=== PATIENT | female | born 1965 | race American Indian/Alaskan Native ===

== ENCOUNTER 2016-06-23 19:56 | Inpatient (IN) | payer BC, OTHER ==
[2016-06-23] MEDS ORDERED: NACL 0.9% 1000 ML 2,000 ML IV ONE (20:15)
[2016-06-23] MEDS ORDERED: NACL 0.9% 1000 ML 2,000 ML ONE (20:17)
[2016-06-23] MEDS ORDERED: NACL 0.9% 1000 ML 1,000 ML IV ONE (21:59)
[2016-06-23] MEDS ORDERED: DIFLUCAN PO ONE (22:07)
[2016-06-23 22:15] LABS: Basophils % (Auto) 0.9 % (0.0-1.8); Eosinophils % (Auto) 0.4 % (0.0-4.3); Hemoglobin 14.8 gm/dl (10.1-14.3); Mean Corpuscular HGB Conc 32 % (30-34); Mean Corpuscular Hemoglobin 30 pg (28-32); Mean Corpuscular Volume 94 fl (79-97); Platelet Count 316 K/mm3 (140-440); Red Blood Count 4.89 M/mm3 (3.65-5.03); Red Cell Distribution Width 13.8 % (13.2-15.2)
[2016-06-23 22:49] LABS: Bacteria,Urine 1+ /HPF (Negative); Bilirubin,Urine NEG (Negative); Blood,Urine LG (Negative); Ketones,Urine 20 mg/dL (Negative); Leukocyte Esterase,Urine LG (Negative); Mucus,Urine FEW /HPF; Nitrite,Urine NEG (Negative); Protein,Urine <15 mg/dL mg/dL (Negative); Urobilinogen,Urine < 2.0 mg/dL (<2.0)
[2016-06-23 23:03] LABS: BUN/Creatinine Ratio 15.71; Calcium 10.4 mg/dL (8.4-10.2); Chloride 80.1 mmol/L (98-107)
[2016-06-23 23:11] LABS: B-Hydroxybutyrate 70.3 mg/dL (0.2-2.8)
[2016-06-23 23:13] LABS: Potassium 6.1 mmol/L (3.6-5.0)
[2016-06-23] MEDS ORDERED: D50W (25GM) IV PRN (23:25)
[2016-06-23] MEDS ORDERED: PROVENTIL IH ONE (23:27)
--- NOTE | 2016-06-23 23:30 | Emergency Department Report ---
- General Chief complaint: Hyperglycemia Stated complaint: BLURRED VISION Time Seen by Provider: 06/23/16 21:41 Source: patient, old records reviewed (admitted here 2014 for new onset dm, also had elevated triglycerides during that admission) Mode of arrival: Ambulatory Limitations: No Limitations - History of Present Illness Initial comments: 50 year old female with a past medical history of asthma. Diabetes and hypertension presents to Hospital complaints of polyuria, blurred vision, and polydipsia for at least 2 weeks. Positive nausea without vomiting. Patient been noncompliant with her insulin for 5 months due to lack of insurance and ability to follow with the primary care doctor. She denies any pain. She does complain of vaginal itching when questioned. No reports of chest pain, shortness of breath, dysuria, or fever. Previous medical record reviewed. Patient was admitted by me at 2014 for new onset diabetes. Triglycerides noted to be elevated at that time. Severity scale (0 -10): 0 - Related Data Previous Rx's Medication Instructions Recorded Last Taken Type Insulin NPH/Regular [NovoLIN 70/30] 30 unit SUB-Q BIDDIAB #1 vial 05/18/14 Unknown Rx Allergies Allergy/AdvReac Type Severity Reaction Status Date / Time No Known Allergies Allergy Unverified 05/15/14 18:46 ED Review of Systems ROS: Stated complaint: BLURRED VISION Other details as noted in HPI Comment: All other systems reviewed and negative Other: Constitutional: No fevers chills Eyes: No eye pain visual changes ENT: No ear pain or throat pain Neck: Denies pain Respiratory: Denies cough wheezing shortness of breath Cardiovascular: Denies chest pain, palpitations, syncope Endocrine: As per HPI GI: Denies abdominal pain, nausea, vomiting, diarrhea : Denies dysuria, urinary frequency, or urgency Musculoskeletal: Denies back pain, joint swelling . Denies neuropathy symptoms Skin: Denies rash, lesions, erythema Neurologic: Denies headache, numbness, weakness Psychiatric: Denies suicidal ideation, hallucinations ED Past Medical Hx - Past Medical History Previous Medical History?: Yes Hx Hypertension: No Hx Diabetes: Yes - Surgical History Past Surgical History?: No - Social History Smoking Status: Never Smoker - Medications Home Medications: Home Medications Medication Instructions Recorded Confirmed Last Taken Type Insulin NPH/Regular [NovoLIN 70/30] 30 unit SUB-Q BIDDIAB #1 vial 01/15/15 Unknown Rx ED Physical Exam - General Limitations: No Limitations - Other Other exam information: General: No limitations, patient is alert in no acute distress Head exam: Atraumatic, normocephalic Eyes exam: Normal appearance, pupils equal reactive to light, extraocular movements intact ENT: Dry mucous mucosa, scattered white plaques on tongue possible thrush Neck exam: Normal inspection, full range of motion, no meningismus nontender Respiratory exam: Clear to auscultation, no tachypnea Cardiovascular: Mild tachycardia, regular rhythm Abdomen: Soft, nondistended, and nontender, with normal bowel sounds, no rebound, or guarding Extremity: Full range of motion normal inspection no deformity Back: Normal Inspection, full range of motion, no tenderness Neurologic: Alert, oriented x3, cranial nerves intact, no motor or sensory deficit Psychiatric: normal affect, normal mood Skin: Warm, dry, intact ED Course Vital Signs 06/23/16 06/23/16 06/23/16 20:07 22:14 23:48 Temperature 98.6 F Pulse Rate 110 H 90 Pulse Rate [ 106 H Throughout] Respiratory 18 18 Rate Respiratory 20 Rate [ Throughout] Blood Pressure 128/85 Blood Pressure 124/80 [Left] O2 Sat by Pulse 100 0 L Oximetry - Reevaluation(s) Reevaluation #1: 06/23/16 23:47 pt stable. ED Medical Decision Making - Lab Data Result diagrams: 06/23/16 22:00 06/23/16 22:00 Lab Results 06/23/16 06/23/16 06/23/16 Range/Units 20:07 22:00 22:00 WBC 8.0 (4.5-11.0) K/mm3 RBC 4.89 (3.65-5.03) M/mm3 Hgb 14.8 H (10.1-14.3) gm/dl Hct 46.0 H (30.3-42.9) % MCV 94 (79-97) fl MCH 30 (28-32) pg MCHC 32 (30-34) % RDW 13.8 (13.2-15.2) % Plt Count 316 (140-440) K/mm3 Lymph % (Auto) 19.7 (13.4-35.0) % Love % (Auto) 9.7 H (0.0-7.3) % Eos % (Auto) 0.4 (0.0-4.3) % Baso % (Auto) 0.9 (0.0-1.8) % Lymph # 1.6 (1.2-5.4) K/mm3 Love # 0.8 (0.0-0.8) K/mm3 Eos # 0.0 (0.0-0.4) K/mm3 Baso # 0.1 (0.0-0.1) K/mm3 Seg Neutrophils % 69.3 (40.0-70.0) % Seg Neutrophils # 5.5 (1.8-7.7) K/mm3 VBG pH (7.320-7.420) Sodium 128 L (137-145) mmol/L Potassium 6.1 H* (3.6-5.0) mmol/L Chloride 80.1 L (98-107) mmol/L Carbon Dioxide 18 L (22-30) mmol/L Anion Gap 36 mmol/L BUN 22 H (7-17) mg/dL Creatinine 1.4 H (0.7-1.2) mg/dL Estimated GFR 48 ml/min BUN/Creatinine Ratio 15.71 % Glucose 805 H* (65-100) mg/dL POC Glucose > 500 H (70-105) Calcium 10.4 H (8.4-10.2) mg/dL Urine Color (Yellow) Urine Turbidity (Clear) Urine pH (5.0-7.0) Ur Specific [place] (1.003-1.030) Urine Protein (Negative) mg/dL Urine Glucose (UA) (Negative) mg/dL Urine Ketones (Negative) mg/dL Urine Blood (Negative) Urine Nitrite (Negative) Urine Bilirubin (Negative) Urine Urobilinogen (<2.0) mg/dL Ur Leukocyte Esterase (Negative) Urine WBC (Auto) (0.0-6.0) /HPF Urine RBC (Auto) (0.0-6.0) /HPF U Epithel Cells (Auto) (0-13.0) /HPF Urine Bacteria (Auto) (Negative) /HPF Urine Mucus /HPF Ketones 70.3 H (0.2-2.8) mg/dL 06/23/16 06/23/16 06/23/16 Range/Units 22:00 22:00 22:22 WBC (4.5-11.0) K/mm3 RBC (3.65-5.03) M/mm3 Hgb (10.1-14.3) gm/dl Hct (30.3-42.9) % MCV (79-97) fl MCH (28-32) pg MCHC (30-34) % RDW (13.2-15.2) % Plt Count (140-440) K/mm3 Lymph % (Auto) (13.4-35.0) % Love % (Auto) (0.0-7.3) % Eos % (Auto) (0.0-4.3) % Baso % (Auto) (0.0-1.8) % Lymph # (1.2-5.4) K/mm3 Love # (0.0-0.8) K/mm3 Eos # (0.0-0.4) K/mm3 Baso # (0.0-0.1) K/mm3 Seg Neutrophils % (40.0-70.0) % Seg Neutrophils # (1.8-7.7) K/mm3 VBG pH 7.289 L (7.320-7.420) Sodium (137-145) mmol/L Potassium (3.6-5.0) mmol/L Chloride (98-107) mmol/L Carbon Dioxide (22-30) mmol/L Anion Gap mmol/L BUN (7-17) mg/dL Creatinine (0.7-1.2) mg/dL Estimated GFR ml/min BUN/Creatinine Ratio % Glucose (65-100) mg/dL POC Glucose > 500 H (70-105) Calcium (8.4-10.2) mg/dL Urine Color Straw (Yellow) Urine Turbidity Clear (Clear) Urine pH 5.0 (5.0-7.0) Ur Specific [place] 1.028 (1.003-1.030) Urine Protein <15 mg/dl (Negative) mg/dL Urine Glucose (UA) >=500 (Negative) mg/dL Urine Ketones 20 (Negative) mg/dL Urine Blood Lg (Negative) Urine Nitrite Neg (Negative) Urine Bilirubin Neg (Negative) Urine Urobilinogen < 2.0 (<2.0) mg/dL Ur Leukocyte Esterase Lg (Negative) Urine WBC (Auto) 17.0 H (0.0-6.0) /HPF Urine RBC (Auto) 9.0 (0.0-6.0) /HPF U Epithel Cells (Auto) 1.0 (0-13.0) /HPF Urine Bacteria (Auto) 1+ (Negative) /HPF Urine Mucus Few /HPF Ketones (0.2-2.8) mg/dL - EKG Data -: EKG Interpreted by Me (nsr rate 102, no peak t waves) - EKG Data When compared to previous EKG there are: previous EKG unavailable - Medical Decision Making Patient received IV insulin, normal saline, and by mouth Diflucan for thrush and complains of vaginal itching.. Patient need admitted to the hospital for DKA and hyperglycemia. Insulin drip initiated in the ED. Albuterol given for Hyperkalemia in addition to insulin drip. - Differential Diagnosis DKA, hyperglycemia, medication noncompliance, electrolyte abnormality, Critical Care Time: No Critical care attestation.: If time is entered above; I have spent that time in minutes in the direct care of this critically ill patient, excluding procedure time. ED Disposition Clinical Impression: DKA (diabetic ketoacidoses), Thrush, Hyperkalemia, Acute renal insufficiency, Noncompliance with medication regimen, Obesity, Newly diagnosed diabetes Disposition: OP ADMITTED IP TO THIS HOSP Is pt being admited?: Yes Condition: Stable Time of Disposition: 23:34 (Dr dias/[facility])
[2016-06-24] MEDS: NovoLIN R 100 UNITS in NACL 0.9% 99 ML IV SCH ×2 (00:23→15:11)
[2016-06-24] MEDS ORDERED: NACL 0.9% 1000 ML IV ONE (00:52)
[2016-06-24] MEDS ORDERED: NACL 0.9% 1000 ML 1,000 ML ONE (00:53)
[2016-06-24 01:01] LABS: Magnesium 2.3 mg/dL (1.7-2.3); Phosphorous 6.3 mg/dL (2.5-4.5)
[2016-06-24 01:23] LABS: BUN/Creatinine Ratio 16.66; Calcium 9.3 mg/dL (8.4-10.2); Chloride 92.7 mmol/L (98-107); Potassium 3.9 mmol/L (3.6-5.0)
[2016-06-24 05:08] LABS: BUN/Creatinine Ratio 14.61; Calcium 9.1 mg/dL (8.4-10.2); Chloride 97.9 mmol/L (98-107); Potassium 3.4 mmol/L (3.6-5.0)
[2016-06-24] MEDS ORDERED: D5W/0.45% NACL/KCL 20 MEQ 20 MEQ/1,000 ML BAG IV SCH (07:00)
[2016-06-24 08:18] LABS: Anion Gap 23 mmol/L; Blood Urea Nitrogen 19 mg/dL (7-17); Calcium 8.9 mg/dL (8.4-10.2); Carbon Dioxide 21 mmol/L (22-30); Chloride 102.9 mmol/L (98-107); Glucose 228 mg/dL (65-100); Potassium 3.3 mmol/L (3.6-5.0); Sodium 144 mmol/L (137-145)
--- NOTE | 2016-06-24 10:36 | Consultation ---
History of Present Illness Consult date: 06/24/16 Requesting physician: ADONAY VALLES Reason for consult: other (DKA) History of present illness: PULMONARY/CCM CONSULT NOTE (Full dictation # [id number]) Please see dictated notes for full details Medications and Allergies Allergies Allergy/AdvReac Type Severity Reaction Status Date / Time No Known Allergies Allergy Unverified 05/15/14 18:46 Home Medications Medication Instructions Recorded Confirmed Last Taken Type Insulin NPH/Regular [NovoLIN 70/30] 30 unit SUB-Q BIDDIAB #1 vial 05/18/14 Unknown Rx Active Meds: Active Medications Dextrose (D50w (25gm)) 0 ml IV PRN PRN PRN Reason: Hypoglycemia Insulin Human Regular 100 (units/ Sodium Chloride) 100 mls @ 1 mls/hr IV TITR [place]; 1 UNITS/HR PRN Reason: Protocol Last Titration: 06/24/16 06:45 Dose: 4 units/hr, 4 mls/hr Potassium Chloride/Dextrose/Sod Cl (D5w/0.45% Nacl/Kcl 20 Meq) 20 meq in 1,000 mls @ 125 mls/hr IV DIRECT [place] Influenza Virus Vaccine Quadrival (Fluarix Quad [id number](36 Mos+)) 60 mcg IM .ONCE ONE Stop: 06/24/16 12:01 Insulin Human Isoph/Insulin Regular (Novolin 70/30) 30 unit SUB-Q BIDDIAB [place] Last Admin: 06/24/16 08:40 Dose: 30 unit Physical Examination Vital signs: Vital Signs Temp Pulse Resp BP Pulse Ox 98.6 F 110 H 18 128/85 100 06/23/16 20:07 06/23/16 20:07 06/23/16 20:07 06/23/16 20:07 06/23/16 20:07 Results - Laboratory Findings CBC and BMP: 06/23/16 22:00 06/24/16 07:23 Abnormal lab findings: Abnormal Labs 06/24/16 06/24/16 06/24/16 00:04 00:43 01:27 Potassium Chloride 92.7 L Carbon Dioxide 16 L BUN 20 H Creatinine Glucose 562 H* POC Glucose 491 H 443 H 06/24/16 06/24/16 06/24/16 02:26 03:23 04:06 Potassium 3.4 L Chloride 97.9 L Carbon Dioxide 18 L BUN 19 H Creatinine 1.3 H Glucose 326 H POC Glucose 394 H 359 H 06/24/16 06/24/16 06/24/16 04:31 05:33 06:44 Potassium Chloride Carbon Dioxide BUN Creatinine Glucose POC Glucose 284 H 263 H 243 H 06/24/16 07:23 Potassium 3.3 L Chloride Carbon Dioxide 21 L BUN 19 H Creatinine Glucose 228 H POC Glucose
--- NOTE | 2016-06-24 11:17 | Admit Criteria Form ---
Admission Criteria Documentation: DIABETES Clinical Indications for Admission to Inpatient Care (Place 'X' for any and all applicable criteria): Admission is indicated by presence of ALL (if I & II) or ANY ONE (if III or IV) of the following (1)(2)(3)(4): [X]I. Diabetes is uncontrolled as indicated by ANY ONE of the following: [X]a) Diabetic ketoacidosis as indicated by ALL of the following (8): [X]i) Hyperglycemia (eg, plasma glucose greater than 200 mg/ dL (11.1 mmol/L)) [X]ii) Acidosis (eg, arterial pH less than 7.30, serum bicarbonate level less than 15 mEq/L (mmol/L)) [X]iii) Moderate ketonuria or ketonemia [ ]b) Hyperglycemic hyperosmolar state as indicated by ALL of the following(9)(10): [ ]i) Neurologic dysfunction (eg, stupor, coma, hemiparesis , seizure)(13) [ ]ii) Plasma glucose greater than 600 mg/dL (33.3 mmol/L) [ ]iii) Serum osmolality greater than 320 mOsm/kg (mmol/kg) [X]c) Severe signs or symptoms secondary to hyperglycemia indicated by ANY ONE of the following: [ ]i) Altered mental status(10) [ ]ii) Significant hypovolemia or dehydration [ ]iii) Intractable nausea or vomiting [ ]iv) Unexplained fever or severe infection [X]v) Severe electrolyte abnormality (eg, hypokalemia, hyperkalemia, hypernatremia) [ ]II. Management at other levels of care (Also use Diabetes: Observation Care as appropriate) is not feasible because of ANY ONE of the following: [ ]a) Condition was not adequately corrected with treatment at other levels of care. [ ]b) Treatment at other levels of care is not appropriate because of condition severity (eg, hyperosmolar coma). [X]III. Contraindications and/or Inappropriate clinical situations for Observational Care in patients with Diabetes, when ANY ONE of the following is required: [X]a) Patient require specific diagnostic workup or therapeutic intervention 22 [ ]b) Patient with abnormal vital signs or altered mental status 23 [ ]IV. General contraindications and/or Inappropriate clinical situations for Observational Care in patients with Diabetes, when ANY ONE of the following is required: [ ]a) Prediction of prolongation of LOS based on ANY ONE of the following may be considered as a contraindication for observational care 2, 3, 4, 5, 6, 7, 8, 9, 10, 11 [ ]i) Age > 65 yrs. [ ]ii) Patient arriving by ambulance [ ]iii) Patient with high acuity [ ]iv) Patient requiring vital sign monitoring [ ]v) Patient on IV medication [ ]b) Systolic blood pressures 180mmHg 3,12 [ ]c) Patient with altered mental status including delirium and other alteration of consciousness, (3) [ ]d) Patient whose discharge disposition will be to a jail home or rehabilitation home should not be managed in Emergency Department Observation Unit. CMS rule requires 3 days hospital stay before such placement.3,13 [ ]e) Patient with failure to thrive due to broad array of etiologies 3,16,17 [ ]f) Inability to ambulate 3,14 Extended stay beyond goal length of stay may be needed for(3)(20): [ ]a) Treatment of precipitating causes [ ]b) Development of hypoglycemia [ ]c) Complications of treatment [ ]d) Complications of decompensated diabetes (eg, acute gastric dilatation, persistent metabolic or neurologic derangement) [ ]e) Active Comorbidities [ ]f) Older patients( 65 years or older) The original [email or web address] content created by [employer] has been revised. The portions of the content which have been revised are identified through the use of italic text or in bold,and [facility] has neither reviewed nor approved the modified material. All other unmodified content is copyright [facility]. Please see references footnoted in the original [facility] edition 2016 Admission Criteria Met: Yes
[2016-06-24] MEDS ORDERED: FLUARIX QUAD 2016-2017(36 MOS+) IM ONE (12:00)
[2016-06-24] MEDS ORDERED: LEVAQUIN PO SCH (13:00)
[2016-06-24 13:47] LABS: Calcium 8.9 mg/dL (8.4-10.2); Chloride 103.6 mmol/L (98-107); Potassium 3.4 mmol/L (3.6-5.0)
[2016-06-24 15:28] LABS: Anion Gap 21 mmol/L; Blood Urea Nitrogen 19 mg/dL (7-17); Calcium 8.7 mg/dL (8.4-10.2); Carbon Dioxide 20 mmol/L (22-30); Chloride 103.4 mmol/L (98-107); Glucose 112 mg/dL (65-100); Potassium 3.6 mmol/L (3.6-5.0); Sodium 141 mmol/L (137-145)
[2016-06-24] MEDS ORDERED: D50W (25GM) IV PRN ×2 (15:35→15:39)
[2016-06-24] MEDS: LEVAQUIN PO SCH (16:11)
--- NOTE | 2016-06-24 17:39 | Progress Note ---
Assessment and Plan 50 year old female with a past medical history of asthma. Diabetes and hypertension presents to Hospital complaints of polyuria, blurred vision, and polydipsia for at least 2 weeks. Positive nausea without vomiting. Patient been noncompliant with her insulin for 5 months due to lack of insurance and ability to follow with the primary care doctor. Complains of vagina itching. 1. Diabetic ketoacidosis: On insulin drip, IV Protonix. Zofran. #. 2. Diabetes mellitus type 2 diagnosed 2002 uncontrolled. Noncompliant. 3. Hypertension optimize with losartan and nifedipine 4. Possibly his vaginitis. Diflucan. 5. Asthma:Bronchodilators. DVT prophylaxis Lovenox and GI with Protonix Critical care time was 32 minutes. Subjective Date of service: 06/24/16 Principal diagnosis: DKA Interval history: 50-year-old lady who came in with diabetic ketoacidosis secondary to noncompliance with her insulin regimen because of lack of insurance. Objective - Constitutional Vitals: Vital Signs - 12hr 06/24/16 06/24/16 06/24/16 05:41 05:51 06:01 Temperature Pulse Rate 102 H 101 H 99 H Respiratory 15 15 16 Rate Blood Pressure 99/57 99/57 106/67 O2 Sat by Pulse 97 97 97 Oximetry 06/24/16 06/24/16 06/24/16 06:11 06:21 06:31 Temperature Pulse Rate 103 H 97 H 99 H Respiratory 14 18 14 Rate Blood Pressure 106/67 106/67 106/67 O2 Sat by Pulse 97 97 97 Oximetry 06/24/16 06/24/16 06/24/16 06:41 06:51 07:00 Temperature Pulse Rate 102 H 102 H 100 H Respiratory 13 12 14 Rate Blood Pressure 106/67 106/67 116/72 O2 Sat by Pulse 97 96 96 Oximetry 06/24/16 06/24/16 06/24/16 07:11 07:21 07:31 Temperature Pulse Rate 99 H 104 H 104 H Respiratory 13 12 16 Rate Blood Pressure 106/67 106/67 106/67 O2 Sat by Pulse 98 97 98 Oximetry 06/24/16 06/24/16 06/24/16 07:41 08:00 08:31 Temperature 98.3 F Pulse Rate 100 H 100 H Respiratory 14 10 L Rate Blood Pressure 116/72 112/63 O2 Sat by Pulse 96 96 Oximetry 06/24/16 06/24/16 06/24/16 08:41 08:51 09:00 Temperature Pulse Rate 102 H 99 H 99 H Respiratory 14 17 15 Rate Blood Pressure 112/63 112/63 117/62 O2 Sat by Pulse 97 97 97 Oximetry 06/24/16 06/24/16 06/24/16 09:11 09:21 09:31 Temperature Pulse Rate 98 H 97 H 102 H Respiratory 12 18 20 Rate Blood Pressure 117/62 117/62 117/62 O2 Sat by Pulse 97 96 95 Oximetry 06/24/16 06/24/16 06/24/16 09:41 09:51 10:00 Temperature Pulse Rate 98 H 99 H 95 H Respiratory 14 20 11 L Rate Blood Pressure 117/62 117/62 104/65 O2 Sat by Pulse 97 95 97 Oximetry 06/24/16 06/24/16 06/24/16 10:11 10:21 10:31 Temperature Pulse Rate 97 H 100 H 101 H Respiratory 17 19 16 Rate Blood Pressure 104/65 104/65 104/65 O2 Sat by Pulse 96 96 97 Oximetry 06/24/16 06/24/16 06/24/16 10:41 10:51 11:00 Temperature Pulse Rate 100 H 101 H 100 H Respiratory 13 19 15 Rate Blood Pressure 104/65 104/65 106/62 O2 Sat by Pulse 97 97 97 Oximetry 06/24/16 06/24/16 06/24/16 11:11 11:21 11:31 Temperature Pulse Rate 133 H 103 H 108 H Respiratory 23 18 12 Rate Blood Pressure 106/62 106/62 106/62 O2 Sat by Pulse 99 98 97 Oximetry 06/24/16 06/24/16 06/24/16 11:41 11:51 12:00 Temperature 97.9 F Pulse Rate 102 H 99 H 99 H Respiratory 15 11 L 16 Rate Blood Pressure 106/62 106/62 115/72 O2 Sat by Pulse 97 97 97 Oximetry 06/24/16 06/24/16 06/24/16 12:11 12:21 12:31 Temperature Pulse Rate 99 H 98 H 92 H Respiratory 20 11 L 15 Rate Blood Pressure 115/72 115/72 115/72 O2 Sat by Pulse 97 98 95 Oximetry 06/24/16 06/24/16 06/24/16 12:41 12:51 13:01 Temperature Pulse Rate 92 H 93 H 90 Respiratory 14 17 10 L Rate Blood Pressure 115/72 115/72 115/72 O2 Sat by Pulse 97 97 97 Oximetry 06/24/16 06/24/16 06/24/16 13:10 13:21 13:31 Temperature Pulse Rate 95 H 95 H 90 Respiratory 13 10 L 17 Rate Blood Pressure 116/72 115/72 115/72 O2 Sat by Pulse 97 98 95 Oximetry 06/24/16 06/24/16 06/24/16 13:41 13:51 14:00 Temperature Pulse Rate 94 H 93 H 96 H Respiratory 18 18 12 Rate Blood Pressure 115/72 115/72 110/66 O2 Sat by Pulse 95 96 98 Oximetry 06/24/16 06/24/16 06/24/16 14:11 14:21 14:31 Temperature Pulse Rate 94 H 95 H 95 H Respiratory 14 14 18 Rate Blood Pressure 110/66 110/66 110/66 O2 Sat by Pulse 97 98 97 Oximetry 06/24/16 06/24/16 06/24/16 14:41 14:51 15:00 Temperature Pulse Rate 95 H 93 H 90 Respiratory 14 15 14 Rate Blood Pressure 110/66 110/66 121/85 O2 Sat by Pulse 97 98 98 Oximetry 06/24/16 06/24/16 06/24/16 15:11 15:21 15:31 Temperature Pulse Rate 97 H 92 H 92 H Respiratory 20 12 13 Rate Blood Pressure 121/85 121/85 121/85 O2 Sat by Pulse 97 98 99 Oximetry 06/24/16 06/24/16 06/24/16 15:41 15:51 16:00 Temperature 98.2 F Pulse Rate 93 H 94 H 92 H Respiratory 17 21 15 Rate Blood Pressure 121/85 121/85 122/72 O2 Sat by Pulse 97 96 97 Oximetry 06/24/16 06/24/16 06/24/16 16:11 16:21 16:31 Temperature Pulse Rate 90 93 H 92 H Respiratory 17 17 19 Rate Blood Pressure 122/72 122/72 122/72 O2 Sat by Pulse 99 97 98 Oximetry 06/24/16 16:41 Temperature Pulse Rate 99 H Respiratory 18 Rate Blood Pressure 122/72 O2 Sat by Pulse 97 Oximetry General appearance: Present: no acute distress, well-nourished - EENT Eyes: PERRL, EOM intact ENT: hearing intact, clear oral mucosa Ears: bilateral: normal - Neck Neck: supple, normal ROM - Respiratory Respiratory effort: normal Respiratory: bilateral: CTA - Breasts Breasts: normal - Cardiovascular Rhythm: regular Heart Sounds: Present: S1 & S2. Absent: gallop, rub Extremities: pulses intact, No edema, normal color, Full ROM - Gastrointestinal General gastrointestinal: Present: soft, non-tender, non-distended, normal bowel sounds - Genitourinary Female genitourinary: normal - Integumentary Integumentary: clear, warm, dry - Musculoskeletal Musculoskeletal: 1, strength equal bilaterally - Neurologic Neurologic: moves all extremities - Psychiatric Psychiatric: memory intact, appropriate mood/affect, intact judgment & insight - Labs CBC & Chem 7: 06/23/16 22:00 06/24/16 14:56 Labs: Abnormal lab results 06/24/16 06/24/16 06/24/16 Range/Units 00:04 00:43 01:27 Potassium (3.6-5.0) mmol/L Chloride 92.7 L (98-107) mmol/L Carbon Dioxide 16 L (22-30) mmol/L BUN 20 H (7-17) mg/dL Creatinine (0.7-1.2) mg/dL Glucose 562 H* (65-100) mg/dL POC Glucose 491 H 443 H (70-105) 06/24/16 06/24/16 06/24/16 Range/Units 02:26 03:23 04:06 Potassium 3.4 L (3.6-5.0) mmol/L Chloride 97.9 L (98-107) mmol/L Carbon Dioxide 18 L (22-30) mmol/L BUN 19 H (7-17) mg/dL Creatinine 1.3 H (0.7-1.2) mg/dL Glucose 326 H (65-100) mg/dL POC Glucose 394 H 359 H (70-105) 06/24/16 06/24/16 06/24/16 Range/Units 04:31 05:33 06:44 Potassium (3.6-5.0) mmol/L Chloride (98-107) mmol/L Carbon Dioxide (22-30) mmol/L BUN (7-17) mg/dL Creatinine (0.7-1.2) mg/dL Glucose (65-100) mg/dL POC Glucose 284 H 263 H 243 H (70-105) 06/24/16 06/24/16 06/24/16 Range/Units 07:23 13:09 14:56 Potassium 3.3 L 3.4 L (3.6-5.0) mmol/L Chloride (98-107) mmol/L Carbon Dioxide 21 L 20 L (22-30) mmol/L BUN 19 H 18 H 19 H (7-17) mg/dL Creatinine (0.7-1.2) mg/dL Glucose 228 H 137 H 112 H (65-100) mg/dL POC Glucose (70-105)
[2016-06-24] MEDS ORDERED: DIFLUCAN PO ONE (17:43)
--- NOTE | 2016-06-24 18:31 | Event Note ---
Date: 06/23/16 See H/p in reports DKA Non compliance
--- NOTE | 2016-06-24 20:20 | History and Physical Report ---
CHIEF COMPLAINT: Severe weakness, polyuria and polydipsia for 2 weeks. HISTORY OF PRESENT ILLNESS: A 50-year-old female, noncompliant with her insulin for the last five months, comes in for severe weakness, polyuria, polydipsia, blurred vision for 2 weeks. Also, nausea present, but no vomiting. The patient has been noncompliant due to lack of insurance and lack of money and lack of primary care doctor. No fever, no chills. itching. Weakness present. Nausea present. No shortness of breath. No fever, no chills. PAST MEDICAL HISTORY: Significant for insulin-dependent diabetes. CURRENT MEDICATIONS: Novolin 70/30, 30 units twice a day, but not taking insulin for the last five months. ALLERGIES: None. SURGERY: None. SOCIAL HISTORY: Smoking status, she does not smoke. FAMILY HISTORY: Significant for hypertension. REVIEW OF SYSTEMS: CONSTITUTIONAL: Some weight loss recently present. Severe weakness present. Blurring of vision present. HEENT: Blurring of vision present. No sore throat, no postnasal drip. CARDIOVASCULAR: No chest pain, no palpitations. RESPIRATORY SYSTEM: No shortness of breath. No cough productive of yellow sputum. GASTROINTESTINAL: Nausea present. No vomiting, no diarrhea. No abdominal pain. GENITOURINARY: No dysuria, no flank pain. MUSCULOSKELETAL: Weakness, muscle weakness present. No joint pains. CENTRAL NERVOUS SYSTEM: No syncope, no seizures. No altered sensorium. SKIN: Normal. LABORATORY DATA: White count is 8000, H and H is 14.8 and 46.0, platelet count is 316,000. Sodium is 128, potassium is 6.1, chloride is 88.1, bicarbonate is 18, BUN and creatinine is 22 and 1.4, glucose is 805. Urine ketones 70.3. Venous blood gas pH is 7.289. ASSESSMENT AND PLAN: 1. Diabetic ketoacidosis. 2. Type 2 diabetes. The patient has severe weakness. Also, has polydipsia and polyuria. The patient is noncompliant. The DKA protocol initiated. IV insulin and initiated. The patient counseled about the availability of insulin called Rel[facility] at [facility] without prescriptions, so that she continues to have insulin all the time and without seeing a physician. The patient is strongly advised to follow up with [facility], which is a [facility] as an outpatient. Continue insulin and bridge over to Novolin 70/30, 40 units twice a day. 3. Hyperkalemia should be corrected with IV insulin. Not so high. The patient given dextrose 50% and insulin in the ER. The patient was not given Kayexalate and calcium chloride etc., because the potassium should be able to come down with IV insulin. Hyponatremia or pseudohyponatremia. Should correct with correction of blood sugars, it is 128, calculated is around 137-140. 4. Hypercalcemia, probably secondary to hemoconcentration should correct with IV fluids. 5. Hypertriglyceridemia. The patient may need to be on fenofibrate. 6. Deep venous thrombosis prophylaxis, Lovenox 40 mg subcutaneous daily. 7. The patient will be admitted to ICU. CRITICAL CARE STATEMENT: She has a high probability of a clinically significant sudden or life-threatening deterioration of the cardiopulmonary system and endocrine system, required my full and direct attention, intervention and personal management. The aggregate critical care time was 35 minutes. The time of examination, the time spent performing reported procedures, but includes the following data review and interpretation: 1. The patient's assessment and monitoring of vital signs. 2. Documentation. 3. Medication orders and management. JOB# [id number] JOSELO/MAT
[2016-06-24] MEDS ORDERED: LOVENOX SUB-Q SCH (22:00)
[2016-06-24] MEDS: NOVOLOG SUB-Q SCH ×2 (22:06→22:51)
[2016-06-24] MEDS ORDERED: ZOFRAN IV PRN (22:20)
[2016-06-24 23:47] LABS: BUN/Creatinine Ratio 12.5; Calcium 8.2 mg/dL (8.4-10.2); Chloride 99.5 mmol/L (98-107); Potassium 3.9 mmol/L (3.6-5.0)
--- NOTE | 2016-06-25 01:22 | Consultation ---
CONSULTING PHYSICIAN: Deana Davis MD of the ER. REASON FOR CONSULTATION: Diabetic ketoacidosis. CHIEF COMPLAINT AND HISTORY OF PRESENT ILLNESS: The patient is a 50-year-old -[place] female with known history of diabetes, on insulin, ran out of her job, ran out of insurance about a year ago, has not been taking any medications since. In the preceding two weeks, she has noticed increasing fatigue, blurry vision, shortness of breath, came into the Emergency Room. In the Emergency Room, she was found to indeed be in diabetic ketoacidosis and required admission to the Intensive Care Unit for IV insulin therapy. When I stopped by to see her, she was resting in bed, feeling a little bit better. She had some nausea. No vomiting, no chest pains. No fevers, no chills. She is a never smoker. That really is as much of the history of presentation as I have. PAST MEDICAL HISTORY: History of diabetes. She is obese. PAST SURGICAL HISTORY: Denies. MEDICATIONS: She was on at the time I stopped by to see her, according to the medication administration record, included the following: She was on insulin drip at 7 units per hour and she was on a dextrose half normal saline drip at 125 mL per hour. ALLERGIES: No known drug allergies. DIET: Obese lady, denies acute weight loss or gain in preceding few weeks to months. FAMILY AND SOCIAL HISTORY: Lives in the community. Denies alcohol, tobacco, or illicit drug use or abuse. REVIEW OF SYSTEMS: No loss of consciousness. No new onset seizures. No new onset focal weakness. No gross hematochezia or melena. No gross hematuria or dysuria. No hematemesis. No hemoptysis. No palpitations. Complete review of systems obtained. Pertinent positives and/or negatives as in body of history above, otherwise noncontributory. PHYSICAL EXAMINATION: VITAL SIGNS: She was afebrile, temperature 98.6, pulse 110, respiratory rate 18, blood pressure 128/85, oxygen sats 100%, inspired oxygen concentration was not recorded. At the time I saw her, she was 98% on room air. HEAD, EYES, EARS, NOSE, AND THROAT: Pupils are equal, round, reactive to light, about 3 mm. Extraocular muscle movements are intact. Grossly, no palpable lymph nodes in the supraclavicular or submandibular lymph node chains. LUNGS: Auscultation of both lung river unremarkable. Lungs are clear bilaterally. HEART: Heart sounds 1 and 2 are heard, regular rate and rhythm at the time of my evaluation. ABDOMEN: Soft. Bowel sounds are positive. Did not appear tender. EXTREMITIES: Without overt digital clubbing, cyanosis, or pedal edema. NEUROLOGIC: The exam was grossly nonfocal. LABORATORY DATA: From my review are as follows: White cell count 8000, hemoglobin 14.8, hematocrit 46.0, and platelets 316. Venous blood gas showed a pH of 7.29. Serum sodium 128, potassium 6.1, chloride , bicarbonate 18, BUN 22, creatinine 1.4, glucose 805. Triglycerides up at 298. Urinalysis with large leukocyte esterase and 17 white cells per high power field, serum ketones 70. RADIOGRAPHIC STUDIES: I do not have any radiographic studies for report. ASSESSMENT AND PLAN: We have a middle-aged lady in with diabetic ketoacidosis appropriately needing IV insulin drip and will be admitted to the Intensive Care Unit. I also do note the urinary tract infection. She apparently was complaining of some vaginal itching and the nurse has now reported some spotting. I will start her empirically on Levaquin monotherapy 250 mg p.o. and treat for about 3 days to 5 days while awaiting the urine cultures. Otherwise, she will be placed on GI and DVT prophylaxis. Flu and pneumonia vaccination will be per protocol. Thank you very much for the consult Dr. Davis. We will follow along and make further recommendations as picture progresses/becomes clearer. JOB# [id number] MUNIRA/AMT
[2016-06-25] MEDS: NOVOLOG SUB-Q SCH ×4 (02:07→13:55)
[2016-06-25] MEDS ORDERED: PEPCID PO SCH (10:00)
--- NOTE | 2016-06-25 11:24 | Progress Note ---
Assessment and Plan - Patient Problems (1) Acute renal insufficiency Status: Acute Plan to address problem: - resolving - continue IV hydration (2) DKA (diabetic ketoacidoses) Status: Acute Qualifiers: Diabetes mellitus type: D Diabetes mellitus complication detail: D Plan to address problem: - wean of IV insulin (once anion gap closes) - introduce long acting insulin - introduce SSI - begin oral diet - improving (3) Obesity Status: Acute Qualifiers: Obesity type: O Obesity severity: O Plan to address problem: - weight loss counselled - outpatient sleep evaluation Subjective Date of service: 06/25/16 Principal diagnosis: DKA Interval history: Seen and examined at bedside; 24 hour events reviewed; nursing and respiratory care staff consulted; no adverse overnight events reported to me; doing better; no active wheezing; denies acute chest pains or increased SON; No N/V Objective Vital Signs - 12hr 06/24/16 06/24/16 06/24/16 23:31 23:41 23:51 Temperature Pulse Rate 96 H 99 H 96 H Pulse Rate [ From Monitor] Respiratory 18 12 19 Rate Blood Pressure 149/82 149/82 149/82 O2 Sat by Pulse 97 97 97 Oximetry 06/25/16 06/25/16 06/25/16 00:00 00:11 00:20 Temperature 99 F Pulse Rate 96 H 91 H Pulse Rate [ From Monitor] Respiratory 16 16 Rate Blood Pressure 103/62 103/62 O2 Sat by Pulse 97 98 Oximetry 06/25/16 06/25/16 06/25/16 00:21 00:31 00:41 Temperature Pulse Rate 93 H 94 H 93 H Pulse Rate [ From Monitor] Respiratory 20 16 18 Rate Blood Pressure 103/62 103/62 103/62 O2 Sat by Pulse 97 98 99 Oximetry 06/25/16 06/25/16 06/25/16 00:51 01:00 01:11 Temperature Pulse Rate Pulse Rate [ From Monitor] Respiratory Rate Blood Pressure 103/62 99/72 99/72 O2 Sat by Pulse 96 97 98 Oximetry 06/25/16 06/25/16 06/25/16 01:21 01:31 01:41 Temperature Pulse Rate Pulse Rate [ From Monitor] Respiratory Rate Blood Pressure 99/72 99/72 99/72 O2 Sat by Pulse 96 96 96 Oximetry 06/25/16 06/25/16 06/25/16 01:51 02:01 02:11 Temperature Pulse Rate 85 Pulse Rate [ From Monitor] Respiratory 19 Rate Blood Pressure 99/72 102/66 102/66 O2 Sat by Pulse 96 97 96 Oximetry 06/25/16 06/25/16 06/25/16 02:21 02:31 02:41 Temperature Pulse Rate 87 89 88 Pulse Rate [ From Monitor] Respiratory 19 22 21 Rate Blood Pressure 102/66 102/66 102/66 O2 Sat by Pulse 96 95 95 Oximetry 06/25/16 06/25/16 06/25/16 02:51 03:00 03:11 Temperature Pulse Rate 86 86 91 H Pulse Rate [ From Monitor] Respiratory 19 13 19 Rate Blood Pressure 102/66 102/69 102/69 O2 Sat by Pulse 95 97 98 Oximetry 06/25/16 06/25/16 06/25/16 03:21 03:31 03:41 Temperature Pulse Rate 92 H 92 H 93 H Pulse Rate [ From Monitor] Respiratory 21 20 19 Rate Blood Pressure 102/69 102/69 102/69 O2 Sat by Pulse 97 97 96 Oximetry 06/25/16 06/25/16 06/25/16 03:51 04:00 04:11 Temperature Pulse Rate 90 95 H 91 H Pulse Rate [ From Monitor] Respiratory 20 20 18 Rate Blood Pressure 102/69 106/73 106/73 O2 Sat by Pulse 96 98 96 Oximetry 06/25/16 06/25/16 06/25/16 04:21 04:31 04:41 Temperature Pulse Rate 92 H 93 H 93 H Pulse Rate [ From Monitor] Respiratory 21 22 20 Rate Blood Pressure 106/73 106/73 106/73 O2 Sat by Pulse 97 97 97 Oximetry 06/25/16 06/25/16 06/25/16 04:51 05:00 05:11 Temperature Pulse Rate 92 H 91 H 93 H Pulse Rate [ From Monitor] Respiratory 20 19 20 Rate Blood Pressure 106/73 104/52 104/52 O2 Sat by Pulse 97 97 97 Oximetry 06/25/16 06/25/16 06/25/16 05:21 05:31 05:41 Temperature Pulse Rate 92 H 88 86 Pulse Rate [ From Monitor] Respiratory 20 20 19 Rate Blood Pressure 104/52 104/52 104/52 O2 Sat by Pulse 96 96 95 Oximetry 06/25/16 06/25/16 06/25/16 05:51 06:00 06:11 Temperature Pulse Rate 87 85 89 Pulse Rate [ From Monitor] Respiratory 18 19 19 Rate Blood Pressure 104/52 98/62 98/62 O2 Sat by Pulse 95 96 96 Oximetry 06/25/16 06/25/16 06/25/16 06:21 06:26 07:00 Temperature 98.4 F Pulse Rate 96 H 88 Pulse Rate [ From Monitor] Respiratory 19 17 Rate Blood Pressure 98/62 122/75 O2 Sat by Pulse 97 97 Oximetry 06/25/16 06/25/16 07:55 08:00 Temperature 97.7 F Pulse Rate 85 Pulse Rate [ 86 From Monitor] Respiratory 15 Rate Blood Pressure 109/75 O2 Sat by Pulse 98 Oximetry Constitutional: no acute distress Eyes: non-icteric ENT: oropharynx moist Neck: supple Effort: normal Ascultation: Bilateral: clear, diminished breath sounds Cardiovascular: regular rate and rhythm Gastrointestinal: normoactive bowel sounds, soft, non-tender, non-distended Integumentary: normal Extremities: no cyanosis, no edema, pulses normal, no ischemia or petechiae Neurologic: normal mental status, non-focal exam, pupils equal and round, motor strength normal and Psychiatric: mood appropriate, affect normal CBC and BMP: 06/23/16 22:00 06/24/16 23:15 Abnormal lab findings: Abnormal Labs 06/24/16 06/24/16 06/24/16 00:04 00:43 01:27 Sodium Potassium Chloride 92.7 L Carbon Dioxide 16 L BUN 20 H Creatinine Glucose 562 H* POC Glucose 491 H 443 H Calcium 06/24/16 06/24/16 06/24/16 02:26 03:23 04:06 Sodium Potassium 3.4 L Chloride 97.9 L Carbon Dioxide 18 L BUN 19 H Creatinine 1.3 H Glucose 326 H POC Glucose 394 H 359 H Calcium 06/24/16 06/24/16 06/24/16 04:31 05:33 06:44 Sodium Potassium Chloride Carbon Dioxide BUN Creatinine Glucose POC Glucose 284 H 263 H 243 H Calcium 06/24/16 06/24/16 06/24/16 07:23 08:00 09:42 Sodium Potassium 3.3 L Chloride Carbon Dioxide 21 L BUN 19 H Creatinine Glucose 228 H POC Glucose 219 H 258 H Calcium 06/24/16 06/24/16 06/24/16 10:07 11:29 13:09 Sodium Potassium 3.4 L Chloride Carbon Dioxide BUN 18 H Creatinine Glucose 137 H POC Glucose 280 H 228 H Calcium 06/24/16 06/24/16 06/24/16 14:08 14:56 15:14 Sodium Potassium Chloride Carbon Dioxide 20 L BUN 19 H Creatinine Glucose 112 H POC Glucose 119 H 117 H Calcium 06/24/16 06/24/16 06/24/16 17:56 20:09 21:55 Sodium Potassium Chloride Carbon Dioxide BUN Creatinine Glucose POC Glucose 397 H 492 H 459 H Calcium 06/24/16 06/25/16 06/25/16 23:15 02:04 05:24 Sodium 135 L Potassium Chloride Carbon Dioxide 20 L BUN Creatinine Glucose 407 H POC Glucose 364 H 265 H Calcium 8.2 L
[2016-06-25] MEDS ORDERED: FLUARIX QUAD 2016-2017(36 MOS+) IM ONE (12:00)
--- NOTE | 2016-06-25 13:13 | Discharge Summary ---
Providers - Providers Date of Admission: 06/23/16 23:14 Date of discharge: 06/25/16 Attending physician: STAN JIMENEZ 06/24/16 00:22 Consult to Physician [CONS] Routine Consulting Provider: ZUNILDA GARCIA Reason For Exam: CRITICAL CARE MANAGEMENT Place consult to:: DR. GARCIA Notified:: YES Time called:: 23:57 Primary care physician: AMBER EVANS Hospitalization Reason for admission: DKA Condition: Stable Pertinent studies: None Procedures: None Hospital course: Pt is a 50 y/o lady who was admitted for DKA. She has not been able to obtain her insulin. On admison pt's blood sugar was very high, 805, with ketones in the blood. Pt was commence on iv hydration and iv insulin. Electrolyte imbalance was corrected. The high blood sugar was also corrected. Compliance with her med was advised as pt was out of her insulin prior to onset of her addicting symptoms Disposition: DISCHARGED TO HOME OR SELFCARE Core Measure Documentation - Palliative Care Palliative Care/ Comfort Measures: Not Applicable - Core Measures Any of the following diagnoses?: none Exam - Constitutional Vitals: Temp Pulse Resp BP Pulse Ox 98.4 F 94 H 23 102/69 96 06/25/16 12:00 06/25/16 12:00 06/25/16 11:00 06/25/16 12:00 06/25/16 12:00 General appearance: Present: no acute distress, well-nourished - EENT Eyes: Present: PERRL ENT: hearing intact, clear oral mucosa - Neck Neck: Present: supple, normal ROM - Respiratory Respiratory effort: normal Respiratory: bilateral: CTA - Cardiovascular Heart Sounds: Present: S1 & S2. Absent: rub, click - Extremities Extremities: pulses symmetrical, No edema Peripheral Pulses: within normal limits - Abdominal General gastrointestinal: Present: soft, non-tender, non-distended, normal bowel sounds Female genitourinary: Present: normal - Integumentary Integumentary: Present: clear, warm, dry - Musculoskeletal Musculoskeletal: gait normal, strength equal bilaterally - Psychiatric Psychiatric: appropriate mood/affect, intact judgment & insight - Neurologic Neurologic: CNII-XII intact, moves all extremities Plan Activity: no restrictions Diet: low fat, low cholesterol, low salt, diabetic, low carbohydrate Special Instructions: record daily BP diary, record blood sugar diary Follow up with: AMBER EVANS MD [Primary Care Provider] - 3-5 Days Prescriptions: Insulin NPH/Regular [NovoLIN 70/30] 30 unit SUB-Q BIDDIAB #1 vial
[2016-06-25] MEDS: LEVAQUIN PO SCH (13:18)
[2016-06-25 14:51] VITALS: BP 95/45
== END 2016-06-25 14:40 | disposition home or self-care (01) | DRG 638 ==
LOC: ED 19:56 → CC1 23:14
PROVIDERS: ADMIT Internal Medicine; ATTEND Family Medicine
DX: E13.10 Other specified diabetes mellitus with ketoacidosis without coma (principal); N39.0 Urinary tract infection, site not specified; E87.5 Hyperkalemia; I10 Essential (primary) hypertension; J45.909 Unspecified asthma, uncomplicated; E83.52 Hypercalcemia; E78.1 Pure hyperglyceridemia; E66.9 Obesity, unspecified; Z79.4 Long term (current) use of insulin; Z91.14 Patient's other noncompliance with medication regimen; Z82.49 Family history of ischemic heart disease and other diseases of the circulatory system; Z68.31 Body mass index [BMI] 31.0-31.9, adult
CPT/HCPCS: 36415; 80048; 80061; 81001; 82010; 82805; 82962; 83735; 84100; 85025; 87086; 90686; 93005; 93010; 94640; 96361; 96374; J1650; J1815; J2405; J7030